=== PATIENT | female | born 1980 | race Caucasian/White ===

== ENCOUNTER 2018-04-26 08:19 | Emergency (ER) | payer BC, OTHER ==
--- NOTE | 2018-04-26 08:29 | UC ---
Throat Pain/Nasal Martell HPI - HPI Summary HPI Summary: Patient presents to urgent care with 48 hours of sore throat. Patient states also has a little bit of congestion, feeling warm but no documented fevers. Patient had some body aches but this resolved. Patient without known fluid contacts. Nobody else at home sick. Patient has had a history of strep throat in the past. Last episode approximately 4 years ago. Patient states it feels similar. Patient has taken DayQuil and NyQuil little improvement. Patient states she is not . Patient not eating and drinking well because her throat hurts. Patient medications reviewed this visit. - History of Current Complaint Stated Complaint: SORE THROAT Time Seen by Provider: 04/26/18 08:23 Hx Obtained From: Patient Hx Last Menstrual Period: 07/23/13 ?: No Onset/Duration: Gradual Onset Severity: Moderate Pain Intensity: 4 Cough: Nonproductive - Allergies/Home Medications Allergies/Adverse Reactions: Allergies Allergy/AdvReac Type Severity Reaction Status Date / Time azithromycin Allergy Rash Verified 04/26/18 08:26 Sulfa (Sulfonamide Allergy Rash Verified 04/26/18 08:26 Antibiotics) Home Medications: Home Medications Ethynodiol D-Ethinyl Estradiol [Kelnor 1-35 28 Tablet] 1 tab BEDTIME 04/26/18 [ History Confirmed 04/26/18] PMH/Surg Hx/FS Hx/Imm Hx Previously Healthy: Yes - Surgical History Surgical History: Yes Surgery Procedure, Year, and Place: T+A - Family History Known Family History: Positive: Non-Contributory - Social History Lives: With Family Alcohol Use: None Substance Use Type: None Smoking Status (MU): Never Smoked Tobacco Have You Smoked in the Last Year: No - Immunization History Most Recent Influenza Vaccination: fall 2011 Most Recent Tetanus Shot: 07/07/12 Review of Systems All Other Systems Reviewed And Are Negative: Yes Constitutional: Positive: Fatigue Skin: Positive: Negative Eyes: Positive: Negative ENT: Positive: Sore Throat Respiratory: Positive: Negative Is Patient Immunocompromised?: No Physical Exam - Summary Physical Exam Summary: Vital Signs Reviewed: Yes A+Ox3, no distress Eyes: Conjunctiva Clear, INESSA. EOM intact and full ENT: Hearing grossly normal TM x 2 clear, turbinates inflammed and boggy, mild PND, mmoist, uvula midline, no exudate, + diffuse erythema No difficulty with secretions Neck: Positive: Supple Respiratory: Positive: No respiratory distress, No accessory muscle use + CTA throughout no w/r Cardiovascular: RRR nl s1, s2 no m/r CBT <2 sec abd soft + BS nt/nd no guarding, no distension Musculoskeletal Exam: MONACO x 4 without difficulty Strength Intact, ROM Intact Neurological: Positive: Alert, + sensation throughout Psychological: Positive: Normal Response To Family Skin: Positive: no rash, no ecchymosis Triage Information Reviewed: Yes Throat Pain/Nasal Course/Dx - Course Course Of Treatment: Patient presents to urgent care with 48 hours of progressive sore throat mild body aches and congestion. Patient states she's had strep throat in the past and is concerned this is what it is. Patient without known sick contacts. Patient without documented fevers. Patient has taken DayQuil and NyQuil with mild improvement. Patient states throat hurts worse with swallowing. No drooling. No difficulty with secretions. Vital signs stable. Patient with diffuse erythema but no exudate. Rapid strep is positive. We'll start patient on Augmentin. Patient will try viscous lidocaine. Patient is was been but states she would just take the prescription. Encourage Motrin Tylenol. Secretion precaution. Return precaution. Patient comfortable in agreement with plan. - Differential Dx/Diagnosis Provider Diagnosis: Strep pharyngitis Discharge - Sign-Out/Discharge Documenting (check all that apply): Patient Departure All imaging exams completed and their final reports reviewed: No Studies - Discharge Plan Condition: Stable Disposition: HOME Prescriptions: Amoxicillin/Clavulanate TAB* [Augmentin TAB 875*] 875 mg PO BID #20 tab Lidocaine 2% VISCOUS* 15 ml .SEE ORDER Q4HR #1 btl Patient Education Materials: Strep Throat (ED) Referrals: No Primary Care Phys,NOPCP [Primary Care Provider] - Additional Instructions: - Okay to alternate ibuprofen (Advil, Motrin)600mg and Tylenol every 3 hours for pain. Take with food. Do NOT take for more than 4-5 days - Okay to gargle and spit warm salt water every 4 hours as needed for pain - Okay to gargle and spit with numbing medication as prescribed - Stay well hydrated - frequent sips of cold fluids will be soothing to your throat (popsicles, jello, ice cream, ice water). Avoid excess caffeine until your symptoms have resolved. -Throat infections are spread by oral secretions - do not share eating or drinking utensils until you symptoms are resolved. Clean items that may get your secretions such as cell phones, ipads, computer mouse, television remotes. Once you have been on antibiotics for 2 days, change your toothbrush and your pillowcase. - take antibiotics as prescribed until gone. This antibiotics may cause diarrhea - eating yogurt or taking probiotics may help with diarrhea - humidify the air in the room where you sleep - boil water, run a hot steam shower, vaporizer, cups of water by heat register - Okay to take over the counter cough and decongestant medication as needed - Contact your doctor to arrange a follow-up appointment as needed - Billing Disposition and Condition Condition: STABLE Disposition: Home
[2018-04-26 08:30] VITALS: BP 125/73
[2018-04-26] MEDS ORDERED: Lidocaine 2% VISCOUS* 15 ML UDC PO ONE (08:38)
== END 2018-04-26 08:54 | disposition home or self-care (01) ==
LOC: UCEAST 08:19
DX: J02.0 Streptococcal pharyngitis (principal); Z88.1 Allergy status to other antibiotic agents; Z88.2 Allergy status to sulfonamides
CPT/HCPCS: 87651; 99212; G0463